=== PATIENT | male | born 1970 | race Caucasian/White ===

== ENCOUNTER 2022-10-27 16:36 | Emergency (ER) | payer OTHER, SELFPAY ==
[2022-10-27 16:53] VITALS: BP 148/98; PULSE 69; RESP 16; TEMP 36.2; O2SAT 98
[2022-10-27] MEDS: TETANUS,DIPHTHERIA,AC PERTUSSIS ADULT (0.5 ML) BOOSTRIX IM (17:01)
--- NOTE | 2022-10-27 17:01 | ED.GENADULT ---
HPI - General Adult General Chief complaint: Wound/Laceration Stated complaint: Laceration to Finger Source: patient Mode of arrival: ambulatory Limitations: no limitations History of Present Illness HPI narrative: Patient presents for evaluation of a laceration to the 3rd digit of his right hand that occurred just prior to arrival. He was putting a piece of furniture together when a metal component cut the affected digit. No loss of range of motion. He is left-hand dominant. He is not diabetic. No paresthesias. Date of last tetanus unknown. Related Data Home Medications Medication Instructions Recorded Confirmed loratadine 10 mg tablet (Claritin) 10 mg PO DAILY 10/27/22 10/27/22 montelukast 10 mg tablet mg 10/27/22 Allergies Allergy/AdvReac Type Severity Reaction Status Date / Time hydrocodone Allergy Rash Verified 10/27/22 16:52 Review of Systems Review of Systems: CONSTITUTIONAL: Denies fever, chills, or sweats. EYES: Denies visual changes, redness, or discharge. ENT: Denies rhinorrhea, congestion, sore throat, or otalgia. CARDIOVASCULAR: Denies chest pain, palpitations, or edema. RESPIRATORY: Denies cough or dyspnea. GASTROINTESTINAL: Denies abdominal pain, nausea, vomiting, or diarrhea. GENITOURINARY: Denies dysuria or hematuria. SKIN: Reports laceration to the 3rd digit of the right hand MUSCULOSKELETAL: Reports pain in 3rd digit of right hand. NEUROLOGIC: Denies headache, numbness, dizziness, or weakness. PSYCHIATRIC: Denies anxiety or depression. PMFSH Past Medical History Medical History Hyperlipidemia Surgical History Surgical History No pertinent past surgical history Family History Family History Mother Family history non-contributory Social History Social History Smoking status: Never smoker Substance use: never Living arrangements: with family Gender identity (if verbalized by the patient): Male Spiritual care concerns: No Exam Narrative: GENERAL: Well-appearing, well-nourished, and in no acute distress. HEAD: Normocephalic, atraumatic. EYES: PERRLA and EOMI. ENT: Nares clear, no rhinorrhea or epistaxis. Mucous membranes moist. Oropharynx without tonsillar hypertrophy exudate or other lesions. Bilateral TMs pearly persaud nonbulging NECK: Supple. No adenopathy or masses. No carotid bruits or JVD CHEST: Clear to auscultation. No respiratory distress. No wheezes rales or rhonchi HEART: Regular rate and rhythm. No murmur heard. Normal peripheral pulses. ABDOMEN: Soft, nontender, nondistended, normal active bowel sounds. EXTREMITIES: Normal range of motion. No edema. SKIN: Approximately 1.2 cm laceration in flap formation to distal phalanx of 3rd digit of right hand adjacent to nailplate. Warm, dry, no rash. NEURO: No focal deficits. Alert and oriented x3. PSYCH: Normal mood and affect. Course Course Emergency Course: This is a 51-year-old male who presented for evaluation of a laceration to the 3rd digit of the right hand. Wound was closed with two sutures. Patient tolerated well. Was provided with a finger splint. Advised on wound care. Apply triple antibiotic ointment 3 times a day or more at home. Follow up in 7-10 days for suture removal. Go to the emergency department for any evidence of infection. Patient in agreement with plan of care Level of Care: Express Care Visit Vital Signs Vital signs: Vital Signs Temperature 36.2 C L 10/27/22 16:53 Pulse Rate 69 10/27/22 16:53 Respiratory Rate 16 10/27/22 16:53 Blood Pressure 148/98 H 10/27/22 16:53 Pulse Oximetry 98 10/27/22 16:53 Oxygen Delivery Room Air 10/27/22 16:53 Temperature 36.2 C L 10/27/22 16:53 Pulse Rate 69 10/27/22 16:53
== END 2022-10-27 17:52 | disposition home or self-care (01) ==
PROVIDERS: Emergency Provider Nurse Practitioner; PCP Family Medicine
DX: S61.212A Laceration without foreign body of right middle finger without damage to nail, initial encounter (principal); W45.8XXA Other foreign body or object entering through skin, initial encounter; Z23 Encounter for immunization; E78.5 Hyperlipidemia, unspecified
CPT/HCPCS: 12001; 90471; 90715; 99212; G0463

== ENCOUNTER 2022-12-31 11:35 | Emergency (ER) | payer OTHER, SELFPAY ==
[2022-12-31 11:46] VITALS: BP 133/81; PULSE 94; RESP 16; TEMP 36.2; O2SAT 96
--- NOTE | 2022-12-31 12:06 | ED.URI ---
HPI - URI/Sore Throat General Chief Complaint: Upper Respiratory Infection Stated Complaint: congestion/cough Source: patient and RN notes reviewed History of Present Illness HPI Narrative: 52 yo M presents to urgent care with complaints of congestion and runny nose x 2 days. Pt states he was unable to sleep last night b/c he can't breathe out his nose. Reports cough. Pt states he recently got home from vacation. Pt also reporting a rash to his bilateral feet, more so on the left. Noticed after he got back from vacation. Denies any itching. Denies any leg pain or swelling. Denies any fevers, chills, sore throat, ear pain, chest pain, SOB, vomiting, or other symptoms. Denies an trauma to his feet. Related Data Home Medications Medication Instructions Recorded Confirmed loratadine 10 mg tablet (Claritin) 10 mg PO DAILY 10/27/22 10/27/22 montelukast 10 mg tablet mg 10/27/22 Allergies Allergy/AdvReac Type Severity Reaction Status Date / Time azithromycin [From Zithromax] Allergy Unknown Verified 12/31/22 11:46 hydrocodone Allergy Rash Verified 10/27/22 16:52 Review of Systems Review of Systems: Pertinent positives and pertinent negatives per HPI. [facility]LY [facility] Past Medical History Medical History Hyperlipidemia Surgical History Surgical History No pertinent past surgical history Family History Family History Mother Family history non-contributory Social History Social History Smoking status: Never smoker Substance use: never Living arrangements: with family Gender identity (if verbalized by the patient): Male Spiritual care concerns: No Comments At the time of my signature, I reviewed and agree with the nursing past medical, surgical, social, and family history. There is no relevant family history pertinent to the patient complaint. Exam Narrative: GENERAL: This is a well-nourished, well-developed patient, in no apparent distress. HEAD: normocephalic, atraumatic. EYES: Sclera clear/white. Vision is grossly intact. EARS: External ears normal, auditory canals clear and without drainage, TMs normal without perforation. Hearing grossly intact. NOSE: congested THROAT: Mucous membranes moist, posterior pharynx clear. NECK: Neck supple, non-tender without lymphadenopathy, masses or thyromegaly. CARDIOVASCULAR: Regular rate and rhythm without murmurs, gallops, or rubs. RESPIRATORY: Clear to auscultation. Breath sounds equal bilaterally. No wheezes, rales, or rhonchi. GASTROINTESTINAL: Abdomen soft, non-tender, nondistended. Bowel sounds are active. No hepato-splenomegaly, or palpable masses. No guarding. SKIN: petechiae noted to left dorsal foot with few spots to right dorsal foot NEURO: awake, alert, and oriented to person, place and time. There were no obvious focal neurologic abnormalities. EXTREMITIES: No clubbing, cyanosis, or edema. No joint tenderness, effusion, or edema noted. BACK: Nontender without deformity or crepitus. No flank tenderness. Course Course Level of Care: Express Care Visit Vital Signs Vital signs: Vital Signs Temperature 97.2 F L 12/31/22 11:46 Pulse Rate 94 12/31/22 11:46 Respiratory Rate 16 12/31/22 11:46 Blood Pressure 133/81 12/31/22 11:46 Pulse Oximetry 96 12/31/22 11:46 Oxygen Delivery Room Air 12/31/22 11:46 Temperature 97.2 F L 12/31/22 11:46 Pulse Rate 94 12/31/22 11:46 Respiratory Rate 16 12/31/22 11:46 Blood Pressure 133/81 12/31/22 11:46 Pulse Oximetry 96 12/31/22 11:46 Oxygen Delivery Room Air 12/31/22 11:46 reviewed MDM - URI/Sore Throat MDM Narrative Medical decision making narrative: Follow up with Dr. Vega for your petechiae in your feet. Viral illness may l
== END 2022-12-31 12:22 | disposition home or self-care (01) ==
PROVIDERS: Emergency Provider Nurse Practitioner Family; PCP Family Medicine
DX: J06.9 Acute upper respiratory infection, unspecified (principal); R23.3 Spontaneous ecchymoses; E78.5 Hyperlipidemia, unspecified
CPT/HCPCS: 99211; G0463

== ENCOUNTER 2023-04-17 08:02 | Emergency (ER) | payer OTHER, SELFPAY ==
[2023-04-17 08:07] VITALS: BP 132/102; PULSE 100; RESP 16; TEMP 36.8; O2SAT 96
--- NOTE | 2023-04-17 08:07 | ED.GENADULT ---
HPI - General Adult General Chief complaint: Dental/Oral Stated complaint: jaw swollen Source: patient, RN notes reviewed and old records reviewed Mode of arrival: ambulatory Limitations: no limitations History of Present Illness HPI narrative: 52-year-old male patient presents to [facility] with complaint of left jaw all swelling that started yesterday. Patient states also having chills but no fever. Patient states has dental issue in that area. MD complaint: Left lower jaw swelling Onset (ago): day(s) (1) Related Data Home Medications Medication Instructions Recorded Confirmed loratadine 10 mg tablet (Claritin) 10 mg PO DAILY 10/27/22 10/27/22 montelukast 10 mg tablet mg 10/27/22 Allergies Allergy/AdvReac Type Severity Reaction Status Date / Time azithromycin [From Zithromax] Allergy Unknown Verified 04/17/23 08:19 hydrocodone Allergy Rash Verified 04/17/23 08:19 Review of Systems Constitutional: Constitutional: Reports no additional constitutional complaints, Denies body ache(s), Reports chills, Denies fatigue, Denies fever(s) and Denies headache(s) Eyes: Eyes: Reports no additional eye complaints and Denies blurry vision ENT: Reports system reviewed and no additional complaints, except as documented, Reports dental pain, Denies vertigo, Denies dizziness, Denies ear discharge, Denies otalgia, Denies facial pain, Denies headache(s), Reports mouth pain, Denies nasal congestion, Denies nasal discharge, Denies sinus pain, Denies sinus pressure, Denies sore throat and Reports throat swelling Cardiovascular: Cardiovascular: Reports no additional cardiovascular complaints, Denies chest pain, Denies chest pain at rest, Denies rapid heart rate and Denies dyspnea Respiratory: Respiratory: Reports no additional respiratory complaints, Denies chest congestion, Denies cough, Denies pain on inspiration, Denies pain with cough and Denies dyspnea Gastrointestinal: Gastrointestinal: Denies abdominal pain, Denies diarrhea, Denies nausea and Denies vomiting Integumentary/Breasts: Skin/Breast: Denies rash Neurologic: Reports system reviewed and no additional complaints, except as documented, Denies vertigo, Denies dizziness and Denies headache(s) Endocrine: Endocrine: Denies fatigue PMFSH Past Medical History Medical History Hyperlipidemia Surgical History Surgical History No pertinent past surgical history Family History Family History Mother Family history non-contributory Social History Social History Smoking status: Never smoker Substance use: never Living arrangements: with family Gender identity (if verbalized by the patient): Male Spiritual care concerns: No Comments At the time of my signature, I reviewed and agree with the nursing past medical, surgical, social, and family history. There is no relevant family history pertinent to the patient complaint. Exam Const: General: cooperative, healthy appearing, no acute distress and well nourished Nutritional Appearance: well nourished Orientation/consciousness: patient oriented x3 Limitations: no limitations HENMT: Head: normal to inspection and normocephalic Ears: external ears normal, TM's normal bilaterally, mastoids normal and Abnormal EAC present Face/Nose/Sinus: normal facial exam Face and sinus: normal facial exam Mouth: Yes Normal oral and palatal mucosa present, Yes moist mucous membranes, No drooling, No lip abnormal and No tongue abnormal Teeth and gingiva: gingiva abnormal edematous Throat: tonsils normal, uvula midline and no uvular edema Eyes: General: appearance normal, both eyes and all related structures Sclera: sclerae normal Pupils: Equal, round and reactive pupils present Resp: Effort & Inspection: no
== END 2023-04-17 08:30 | disposition home or self-care (01) ==
PROVIDERS: Emergency Provider Registered Nurse; PCP Family Medicine
DX: K04.7 Periapical abscess without sinus (principal); E78.5 Hyperlipidemia, unspecified
CPT/HCPCS: 99213; G0463

== ENCOUNTER 2024-01-05 10:02 | Emergency (ER) | payer OTHER, SELFPAY ==
[2024-01-05 10:11] VITALS: BP 152/105; PULSE 79; RESP 16; TEMP 36.3; O2SAT 98
--- NOTE | 2024-01-05 10:31 | ED.WOUNDLAC ---
HPI - Wound/Laceration General Chief Complaint: Wound/Laceration Stated Complaint: dog bite, rt arm History of Present Illness HPI narrative: PATIENT CAME IN FOR EVALUATION OF DOG BITE TO HIS RIGHT FOREARM. PATIENT STATES HIS DOG IS BEEN ILL AND HE BIT HIM THIS MORNING. PATIENT HAS PUNCTURE WOUNDS TO RIGHT FOREARM. PATIENT REPORTS THAT HE IS UP-TO-DATE ON HIS TDAP STATES HIS LAST 1 WAS LAST YEAR. Related Data Home Medications Medication Instructions Recorded Confirmed montelukast 10 mg tablet 10 mg PO DAILY 10/27/22 01/05/24 Allergies Allergy/AdvReac Type Severity Reaction Status Date / Time azithromycin [From Zithromax] Allergy Itching Verified 01/05/24 10:26 hydrocodone Allergy Rash Verified 01/05/24 10:26 Review of Systems Review of Systems: CONSTITUTIONAL: DENIES FEVER, CHILLS, OR SWEATS. EYES: DENIES VISUAL CHANGES, REDNESS, OR DISCHARGE. ENT: DENIES RHINORRHEA, CONGESTION, SORE THROAT, OR OTALGIA. CARDIOVASCULAR: DENIES CHEST PAIN, PALPITATIONS, OR EDEMA. RESPIRATORY: DENIES COUGH OR DYSPNEA. GASTROINTESTINAL: DENIES ABDOMINAL PAIN, NAUSEA, VOMITING, OR DIARRHEA. GENITOURINARY: DENIES DYSURIA OR HEMATURIA. SKIN: DENIES RASH OR ITCHING. DOG BITE TO RIGHT FOREARM MUSCULOSKELETAL: DENIES BACK PAIN, JOINT PAIN, OR MYALGIA. NEUROLOGIC: DENIES HEADACHE, NUMBNESS, OR WEAKNESS. PSYCHIATRIC: DENIES ANXIETY OR DEPRESSION. PMFSH Past Medical History Medical History Hyperlipidemia Surgical History Surgical History No pertinent past surgical history Family History Family History Mother Family history non-contributory Social History Social History Smoking status: Never smoker Substance use: never Living arrangements: with family Gender identity (if verbalized by the patient): Male Spiritual care concerns: No Comments AT TIME OF SIGNATURE, AGREE WITH NURSING PAST MEDICAL, SURGICAL, SOCIAL AND FAMILY HISTORY. THERE IS NO RELEVANT FAMILY HISTORY PERTINENT TO THE PRESENTING COMPLAINT Exam Narrative: GENERAL: WELL-APPEARING, WELL-NOURISHED, AND IN NO ACUTE DISTRESS. HEAD: NORMOCEPHALIC, ATRAUMATIC. EYES: PERRLA AND EOMI. ENT: NARES CLEAR, NO RHINORRHEA OR EPISTAXIS. MUCOUS MEMBRANES MOIST. NECK: SUPPLE. CHEST: CLEAR TO AUSCULTATION. NO RESPIRATORY DISTRESS. HEART: REGULAR RATE AND RHYTHM. NO MURMUR HEARD. NORMAL PERIPHERAL PULSES. ABDOMEN: SOFT, NONTENDER, NONDISTENDED, NORMAL ACTIVE BOWEL SOUNDS. EXTREMITIES: NORMAL RANGE OF MOTION. NO EDEMA. RIGHT FOREARM PUNCTURE WOUNDS AND ABRASION WITH SLIGHT BRUISING CONSISTENT WITH DOG BITE. SKIN: WARM, DRY, NO RASH. NEURO: NO FOCAL DEFICITS. ALERT AND ORIENTED X3. MANNY COMA SCALE EYE OPENING: SPONTANEOUS 4 MANNY COMA SCALE MOTOR: OBEYS COMMANDS 6 MANNY COMA SCALE VERBAL: ORIENTED 5 MANNY COMA SCALE TOTAL 15 Course Course Level of Care: Express Care Visit Vital Signs Vital signs: Vital Signs Temperature 36.3 C L 01/05/24 10:11 Pulse Rate 79 01/05/24 10:11 Respiratory Rate 16 01/05/24 10:11 Blood Pressure 152/105 H 01/05/24 10:11 Pulse Oximetry 98 01/05/24 10:11 Oxygen Delivery Room Air 01/05/24 10:11 Temperature 36.3 C L 01/05/24 10:11 Pulse Rate 79 01/05/24 10:11 Respiratory Rate 16 01/05/24 10:11 Blood Pressure 152/105 H 01/05/24 10:11 Pulse Oximetry 98 01/05/24 10:11 Oxygen Delivery Room Air 01/05/24 10:11 PLEASE MICHELLE SCHEDULE A FOLLOWUP VISIT WITH YOUR PERSONAL PHYSICIAN FOR FURTHER EVALUATION AND TREATMENT. INCLUDING RECHECK AND DISCUSSION OF YOUR BLOOD PRESSURE. IF YOUR SYMPTOMS PERSIST, CHANGE OR WORSEN SIGNIFICANTLY BEFORE YOU CAN CONTACT YOUR PERSONAL PHYSICIAN THEN PLEASE, WITHOUT DELAY, GO TO THE EMERGENCY DEPARTMENT FOR FURTHER EVALUATION Disc
== END 2024-01-05 10:39 | disposition home or self-care (01) ==
PROVIDERS: Emergency Provider Nurse Practitioner Family; PCP Family Medicine
DX: S51.831A Puncture wound without foreign body of right forearm, initial encounter (principal); W54.0XXA Bitten by dog, initial encounter; E78.5 Hyperlipidemia, unspecified
CPT/HCPCS: 99213; G0463